=== PATIENT | female | born 1950 | race Caucasian/White ===

== ENCOUNTER → 2019-11-04 | Outpatient (CLI) | payer MEDICARE, OTHER ==
[2016-06-12 15:19] VITALS: BP 138/64
[~2019-11-04] MED LIST: ATOR20TA58 PO; DIPH25CA58 PO; FENO160T PO; GABA-586 PO; GABA600T7 PO; GLYB2.5T2 PO; HYDR-2155 PO; LEVO500T59 PO; METF500T16 PO; MINO100C61 PO; MINO2.5T12 PO; OMEP20TA63 PO; PHEN-444 PO; SITA100T PO; SITA25TA PO; VARE1TAB20 PO; VITS42.5 TP
--- NOTE | 2019-11-04 12:33 | RAD ---
EXAM: Chest, 2 views. HISTORY: Cough. COMPARISON: 06/10/2016. FINDINGS: 2 views of chest are obtained. There is no infiltrate, pleural effusion or pneumothorax. The heart is normal in size. There are a few calcified granulomas There is increased thoracic kyphosis. IMPRESSION: No acute pulmonary finding. Electronically signed by: Carol Alba MD (11/04/2019 12:30 PM) [id number]
== END | disposition home or self-care (01) ==
LOC: RAD 12:13
PROVIDERS: ATTEND Family Medicine
DX: R05 Cough (principal); M40.294 Other kyphosis, thoracic region
CPT/HCPCS: 71046

== ENCOUNTER 2020-10-22 19:25 | Emergency (ER) | payer MEDICARE, OTHER ==
[2016-06-12 15:19] VITALS: BP 138/64
== END 2020-10-22 20:48 | disposition left against medical advice (07) ==
LOC: ER 19:25
DX: N23 Unspecified renal colic (principal); Z53.21 Procedure and treatment not carried out due to patient leaving prior to being seen by health care provider

== ENCOUNTER → 2020-12-02 | Outpatient (CLI) | payer MEDICARE, OTHER ==
[2016-06-12 15:19] VITALS: BP 138/64
--- NOTE | 2020-12-02 14:09 | RAD ---
US RENAL BILAT History: Reason: RT FLANK PAIN / Spl. Instructions: / History: Comparison: None. Procedure: Transabdominal ultrasound images are obtained of the kidneys and bladder. Findings: Right kidney: measures 10.7 x 6.9 x 5.1 cm. Normal cortical echotexture. Corticomedullary differenti ation is preserved. No hydronephrosis. Left kidney: measures 12.2 x 4.8 x 6.7 cm. Normal cortical echotexture. Corticomedullary differentia tion is preserved. No hydronephrosis. Urinary bladder: Decompressed urinary bladder. The IVC is normal caliber. The visualized abdominal aorta is normal caliber. IMPRESSION: 1. Unremarkable renal ultrasound. Electronically signed by: Liban Baird DO (12/02/2020 2:07 PM) [id number]
== END ==
LOC: US 09:38
PROVIDERS: ATTEND Family Medicine
DX: R10.11 Right upper quadrant pain (principal)
CPT/HCPCS: 76770

== ENCOUNTER → 2021-08-24 | Outpatient (CLI) | payer MEDICARE, OTHER ==
[2016-06-12 15:19] VITALS: BP 138/64
--- NOTE | 2021-08-24 09:30 | RAD ---
Bilateral lower extremity venous duplex study 08/24/2021 8:43 AM Clinical History: Bilateral lower extremity pain Comparison: None Technique: Using a combination of real time ultrasound imaging and color-flow and pulse Doppler imagi ng techniques along with graded compression and augmentation, duplex evaluation of the deep venous sy stem of the both lower extremities was performed. Multiple images were obtained. Findings: There is no sonographic evidence of deep venous thrombosis involving the visualized deep ve nous structures of either lower extremity. Impression: No evidence of deep venous thrombosis involving either lower extremity Electronically signed by: Carl Billingsley MD (08/24/2021 9:27 AM) [id number]
== END ==
LOC: US 08:39
PROVIDERS: ATTEND Family Medicine
DX: I82.493 Acute embolism and thrombosis of other specified deep vein of lower extremity, bilateral (principal)
CPT/HCPCS: 93970